=== PATIENT | male | born 1980 | race Caucasian/White ===

== ENCOUNTER → 2023-05-08 | Outpatient (CLI) | payer OTHER ==
[~2023-05-08] VITALS: Ht 175.3 cm; Wt 91.2 kg
[~2023-05-08] MED LIST: FUROSEMIDE 20MG/2ML VIAL IVP SCH
== END | disposition home or self-care (01) ==
LOC: NM 08:42
PROVIDERS: ATTEND Urology
DX: N13.1 Hydronephrosis with ureteral stricture, not elsewhere classified (principal)
CPT/HCPCS: 78707; A9562; J1940

== ENCOUNTER → 2023-05-22 | Day surgery (SDC) | payer OTHER ==
[~2023-05-22] MED LIST changes: +DESV50TA4 PO; +DEXAMETHASONE 4MG/ML 1ML VIAL ONE; +FENTANYL CITRATE/PF 50MCG/ML 2ML VIAL ONE; -FUROSEMIDE 20MG/2ML VIAL IVP SCH; +GABA-290 PO; +HYDROMORPHONE HCL/PF 2MG/ML CPJ IV PRN; +KETOROLAC 15MG/ML VIAL IV PRN; +LABETALOL 5MG/ML SYR 20 MG/4 ML SYRINGE IV PRN; +LACTATED RINGERS 1,000 ML IV ONE; +LIDOCAINE HCL 1% 10 MG/ML 10ML VIAL ONE; +MEPERIDINE HCL/PF 25MG/ML CPJ IV PRN; +MIDAZOLAM HCL 2 MG/2 ML VIAL ONE; +ONDANSETRON HCL 4MG/2ML INJ IV PRN; +ONDANSETRON HCL 4MG/2ML INJ ONE; +PROPOFOL 200MG/20ML VIAL IV ONE
[2023-05-22 07:22] LABS: PROTHROMBIN TIME 10.8 sec (9.6-11.0)
== END | disposition home or self-care (01) ==
LOC: OR 05:43
PROVIDERS: ATTEND Urology
DX: N13.2 Hydronephrosis with renal and ureteral calculous obstruction (principal); Z79.899 Other long term (current) drug therapy; Z79.01 Long term (current) use of anticoagulants; Z98.890 Other specified postprocedural states; Z82.49 Family history of ischemic heart disease and other diseases of the circulatory system; Z83.3 Family history of diabetes mellitus
CPT/HCPCS: 85610; 85730; 36415; 93005; 50590; J3010; J1100; J3490; J2250; J2405; J2704; Z7610 ×7